=== PATIENT | male | born 1970 | race Caucasian/White ===

== ENCOUNTER 2018-09-21 14:09 | Emergency (ER) | payer SELFPAY ==
[2018-09-21 14:42] VITALS: BMI 29.8
[2018-09-21] MEDS ORDERED: NALOXONE HCL 0.4 MG/ML VIAL IVPUSH ONE (15:46)
--- NOTE | 2018-09-21 15:46 | PDOC ---
Attending Attestation - Resident Resident Name: Shanda Mcginnis - ED Attending Attestation I have performed the following: I have examined & evaluated the patient, The case was reviewed & discussed with the resident, I agree w/resident's findings & plan, Exceptions are as noted - HPI HPI: 09/21/18 17:00 48-year-old male presented [facility] due to alterations in mental status. He apparently was in route to [facility] when he was noted to be somnolent and had difficulty ambulating. [facility] with a call 911 and sent to the ER. Patient is largely unable to provide any historical data at this time as he is lethargic - Physicial Exam PE: 09/21/18 17:00 GENERAL: The patient is in no acute distress, lethargic HEAD: Normal with no signs of trauma. EYES: Pupils 2mm bilaterally, sluggishly reactive, no conjunctival injection ENT: Ears normal, nares patent, oropharynx clear without exudates. Moist mucous membranes. NECK: Normal range of motion, supple LUNGS: Breath sounds equal, clear to auscultation bilaterally. HEART:Regular rate and rhythm, normal S1 and S2 without murmur, rub or gallop. ABDOMEN: Soft, nontender EXTREMITIES:no edema, no deformities NEUROLOGICAL: somnolent, not responsive to questioning, minimally responsive to painful stimuli MUSCULOSKELETAL: no deformities SKIN: Warm, Dry, normal turgor, no rashes or lesions noted. - Medical Decision Making 09/21/18 17:03 G 48-year-old male presenting to the emergency department status post being found somnolent on his way to [facility]. Differential diagnosis includes but is not limited to: Substance overdose Unlikely meningitis or encephalitis given no fever Will do labs EKG CT head Monitor for sobriety PT given Narcan No improvement in responsiveness Doubt this presentation is due to narcotic O/D (no respiratory depression, pupils dilate in darkness and are not pinpoint) Awaiting labs Awaiting CT results (per my review, no obvious bleed) Twelve-lead EKG was performed and reviewed by me. There is normal sinus rhythm with a normal rate. The axis is normal. The intervals are normal. There are no ST or T wave abnormalities. Impression: Normal twelve-lead EKG Pt signed out to Dr Angulo pending sobriety
[2018-09-21] MEDS ORDERED: NALOXONE HCL 0.4 MG/ML VIAL ONE (15:47)
--- NOTE | 2018-09-21 15:48 | PDOC ---
History of Present Illness - General Chief Complaint: Substance Abuse Stated Complaint: ALCOHOL/DRUG ABUSE Time Seen by Provider: 09/21/18 15:27 History Source: EMS Exam Limitations: Intoxication, Unresponsive - History of Present Illness Initial Comments: Pt is a 48 yo M, with unknown PMH (pts first visit to [facility]), presenting via EMS for AMS/intoxication. Pt was seen near [facility] "stumbling" near [facility] facility, but pt did not fall. Someone nearby walked him into the [facility] facility, where they alerted EMS. EMS crew state he "mumbled something about cocaine". According to EMS note, GCS 15, no interventions given, and pt had stated "he was dropped off at [facility] after drinking too much alcohol". 09/21/18 16:53 Past History - Past Medical History Allergies/Adverse Reactions: Allergies Allergy/AdvReac Type Severity Reaction Status Date / Time No Allergy Information Allergy Verified 09/21/18 14:38 Available Home Medications: Ambulatory Orders Unobtainable 09/21/18 Other medical history: unknown - Suicide/Smoking/Psychosocial Hx Smoking History: Unknown if ever smoked Review of Systems - Review of Systems Able to Perform ROS?: Yes (pt intoxicated) Is the patient limited Yoruba proficient: Yes *Physical Exam - Vital Signs Last Vital Signs Temp Pulse Resp BP Pulse Ox 97.3 F L 84 18 106/62 84 L 09/21/18 14:10 09/21/18 14:10 09/21/18 14:10 09/21/18 14:10 09/21/18 14:10 - Physical Exam General Appearance: Yes: Nourished, Appropriately Dressed, Apparent Distress ( Pt unresponsive (groans occasionally to sternal rub), vitals stable after 2L NC O2 and repositioning.), Alcohol on Breath, Intoxicated, Obese HEENT: positive: EOMI, MAGY (pinpoint but equal and reactive), Pharynx Normal. negative: Normal ENT Inspection, Scleral Icterus (R), Scleral Icterus (L), Pharyngeal Erythema, Tonsillar Exudate, Tonsillar Erythema, TM Bulging, TM Dull , TM Erythema, Excessive drooling, Thrush, Other (no) Neck: positive: Trachea midline, Normal Thyroid, Supple. negative: Tender, Rigid, Lymphadenopathy (R), Lymphadenopathy (L), Rigidity Respiratory/Chest: positive: Lungs Clear, Normal Breath Sounds (snoring respirations, improved with repositioning, clear breath sounds). negative: Chest Tender, Respiratory Distress, Accessory Muscle Use, Rales, Wheezing Cardiovascular: positive: Regular Rhythm, Regular Rate, S1, S2. negative: Edema , JVD, Murmur, Bradycardia, Tachycardia Vascular Pulses: Carotid (R): 4+, Carotid (L): 4+ Gastrointestinal/Abdominal: positive: Normal Bowel Sounds, Soft, Protuberent. negative: Tender, Flat, Organomegaly, Pulsatile Mass, Guarding, Rebound, Tenderness Male Genitalia: positive: normal genitalia. negative: discharge Rectal Exam: positive: normal exam, normal rectal tone. negative: melena Lymphatic: negative: Adenopathy, Tenderness Musculoskeletal: positive: Normal Inspection. negative: CVA Tenderness Extremity: positive: Normal Capillary Refill, Normal Inspection, Normal Range of Motion, Pelvis Stable. negative: Tender, Cyanosis, Delayed Capillary Refill , Pedal Edema Integumentary: positive: Normal Color, Dry, Warm. 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 Banks. Pt presenting via EMS for AMS/intoxication. Pt was seen near [facility] "stumbling" near [facility], but pt did not fall. Someone nearby walked him into the [facility], where they alerted EMS. EMS crew state he "mumbled something about cocaine". According to EMS note, GCS 15, no interventions given, and pt had stated "he was dropped off at [facility] after drinking too much alcohol". PE showed unresponsive pt, will groan occasionally with movement and sternal rub. Vitals stable, pt has snoring respirations. O2 saturation improved from mid -80s% to 95% with 2L O2 nasal canula and repositioning. Pinpoint pupils. Full head-to-toe exam performed, no ecchymosis, abrasions, or step-offs noted. Pt did not groan to palpation. Clear heart and lung sounds. Pt protecting his airway and showing good cough response when moved. No facial droop or EOM palsy notable, although pt minimally responsive. Unable to perform NIHSS. Rectal exam showed good rectal tone, no bleeding. Rectal temp 95.8 (multiple blankets applied to pt and will reassess). BGM at bedside 115. Considering intoxication (alcohol vs others, possibly opiates considering pinpoint pupils), bleed/stroke, infectious. Ordered work-up including full lab work-up (CBC, CMP, Mg, Phos, coags, UA, troponin, ECG, urine drug screen, acetaminophen, salicylates), CT head non- contrast and CT spine non-contrast. Provided .4 mg IV push Narcan for improvement of AMS, to which he had no response. Pt continues to protect airway. Will continue to reassess pt and monitor for symptomatic improvement. 09/21/18 16:02 ECG showed NSR, normal intervals, no ST changes. Pt was taken for CT scan, pending results. IV was placed, nursing staff had not sent labs before CT scan. Labs sent now and pending results. 09/21/18 16:33 09/21/18 16:47 CBC: WBC 15.6 (pt afebrile, no obvious source of infection). 09/21/18 17:18 Coags WNL 09/21/18 17:[address] no acute pathology. Pt still stable, more responsive to sternal rub. Still not answering questions. 09/21/18 17:29 CMP generally WNL, Ca 8.3, Mg 2.6 Trop <.02 Alcohol 279, Acetaminophen <2, salicylates 2.3 09/21/18 18:[address] showed no fracture, although large motion artifact. Straight catheter was done for urine sample. Pt woke up during insertion of catheter and swatted nurse's hand away. Pending urine results and drug screen. Will continue to monitor for clinical sobriety. Pt vitals stable. 09/21/18 18:29 Pt also positive for cocaine. Pt signed out to next resident team. Explained presentation, ED course, any pending results, and needed interventions to resident Dr. Hernandez. 09/21/18 19:02 *DC/Admit/Observation/Transfer Diagnosis at time of Disposition: Alcohol intoxication Qualifiers: Complication of substance-induced condition: uncomplicated Qualified Code(s): F10.920 - Alcohol use, unspecified with intoxication, uncomplicated Cocaine intoxication Qualifiers: Complication of substance-induced condition: uncomplicated Qualified Code(s): F14.920 - Cocaine use, unspecified with intoxication, uncomplicated - Discharge Dispostion Condition at time of disposition: Stable - Referrals - Patient Instructions Printed Discharge Instructions: DI for Alcohol Abuse Additional Instructions: You were seen in the ER today for alcohol intoxication. Please follow-up with your primary care doctor within 1-2 days to discuss your visit and make sure your symptoms have improved. Please return to the ER if you have any worsening pain, development of fevers or chills, loss of consciousness, inability to tolerate food or fluids, or any other concerns. - Post Discharge Activity
[2018-09-21 17:02] LABS: BASO % 0.7 % (0-2.0); EOS % 0.9 % (0-4.5); HEMATOCRIT 45.8 % (35.4-49); HEMOGLOBIN 15.2 GM/dL (11.7-16.9); LYMPH % 14.7 % (8-40); MCH 28.5 pg (25.7-33.7); MCHC 33.1 g/dl (32.0-35.9); MEAN CELL VOLUME 86.1 fl (80-96); MEAN PLT VOLUME 8.6 fl (7.5-11.1); NEUT % 78.7 % (42.8-82.8); PLATELET COUNT 269 K/MM3 (134-434); RBC 5.32 M/mm3 (4.00-5.60); RDW 14.1 % (11.9-15.9); WHITE BLOOD COUNT 15.6 K/mm3 (4.0-10.0)
[2018-09-21 17:07] VITALS: TEMP 95.6
[2018-09-21 17:16] LABS: INR 0.98 (0.83-1.09); PROTHROMBIN TIME (PATIENT) 11.6 SEC (9.7-13.0)
[2018-09-21 17:19] LABS: ACTIVATED PTT 30.2 SECONDS (25.2-36.5)
[2018-09-21 17:57] LABS: ALK PHOS 83 U/L (45-117); ANION GAP 11 MMOL/L (8-16); BILIRUBIN,TOTAL 0.3 mg/dL (0.2-1); BLOOD UREA NITROGEN 13 mg/dL (7-18); CALCIUM 8.3 mg/dL (8.5-10.1); CHLORIDE 104 mmol/L (98-107); CO2 23 mmol/L (21-32); CREATININE 1.1 mg/dL (0.55-1.3); GLUCOSE,RANDOM 86 mg/dL (74-106); MAGNESIUM 2.6 mg/dL (1.8-2.4); PHOSPHOROUS 4.1 mg/dL (2.5-4.9); POTASSIUM 4.1 mmol/L (3.5-5.1); SGOT/AST 25 U/L (15-37); SGPT/ALT 21 U/L (13-61); SODIUM 139 mmol/L (136-145); TOT PROT 7.1 g/dl (6.4-8.2)
[2018-09-21 18:34] LABS: URINE APPEARANCE CLEAR; URINE BILIRUBIN NEGATIVE (<2.0 mg/dL); URINE COLOR STRAW; URINE GLUCOSE (UA) NEGATIVE (NEGATIVE); URINE KETONE NEGATIVE (NEGATIVE); URINE LEUK ESTERASE NEGATIVE (NEGATIVE); URINE NITRITE NEGATIVE (NEGATIVE); URINE PROTEIN NEGATIVE (NEGATIVE); URINE UROBILINOGEN NEGATIVE mg/dL (0.2-1.0)
[2018-09-21 18:54] LABS: METHADONE, UR NEGATIVE ng/ml (CUTOFF=300); OPIATES, URI NEGATIVE ng/ml (CUTOFF=300); PHENCYCLIDINE,URINE NEGATIVE ng/ml (CUTOFF=25); URINE AMPHETAMINES NEGATIVE ng/ml (CUTOFF=500); URINE BARBITURATES NEGATIVE ng/ml (CUTOFF=200); URINE BENZODIAZEPINES NEGATIVE ng/ml (CUTOFF=200)
[2018-09-21 18:57] LABS: COCAINE, UR POSITIVE ng/ml (CUTOFF=300)
[2018-09-21 19:11] LABS: URINE HYALINE CAST 1 /lpf; URINE MUCUS RARE
--- NOTE | 2018-09-21 19:11 | PDOC ---
*Physical Exam - Vital Signs Last Vital Signs Temp Pulse Resp BP Pulse Ox 95.6 F L 75 18 112/66 92 L 09/21/18 15:50 09/21/18 16:45 09/21/18 16:45 09/21/18 16:45 09/21/18 16:45 <Rodrigo Hernandez - Last Filed: 09/22/18 00:27> - Vital Signs Last Vital Signs Temp Pulse Resp BP Pulse Ox 95.6 F L 75 18 112/66 92 L 09/21/18 15:50 09/21/18 16:45 09/21/18 16:45 09/21/18 16:45 09/21/18 16:45 <Shayy Angulo - Last Filed: 09/22/18 00:48> ED Treatment Course - LABORATORY CBC & Chemistry Diagram: 09/21/18 16:50 09/21/18 16:50 - ADDITIONAL ORDERS Additional order review: Laboratory Results 09/21/18 09/21/18 09/21/18 17:52 17:52 16:50 PT with INR INR PTT (Actin FS) Sodium 139 Potassium 4.1 Chloride 104 Carbon Dioxide 23 Anion Gap 11 BUN 13 Creatinine 1.1 Creat Clearance w eGFR > 60 Random Glucose 86 Calcium 8.3 L Phosphorus 4.1 Magnesium 2.6 H Total Bilirubin 0.3 AST 25 ALT 21 Alkaline Phosphatase 83 Creatine Kinase 125 Troponin I < 0.02 Total Protein 7.1 Albumin 4.0 Urine Color Straw Urine Appearance Clear Urine pH 5.0 Ur Specific [place] 1.004 L Urine Protein Negative Urine Glucose (UA) Negative Urine Ketones Negative Urine Blood 1+ H Urine Nitrite Negative Urine Bilirubin Negative Urine Urobilinogen Negative Ur Leukocyte Esterase Negative Salicylates 2.3 L Opiates Screen Negative Methadone Screen Negative Acetaminophen < 2.0 L Barbiturate Screen Negative Phencyclidine Screen Negative Ur Amphetamines Screen Negative MDMA (Ecstasy) Screen Negative Benzodiazepines Screen Negative Cocaine Screen Positive A* U Marijuana (THC) Screen Negative Alcohol, Quantitative 279.5 H 09/21/18 16:50 PT with INR 11.60 INR 0.98 PTT (Actin FS) 30.2 Sodium Potassium Chloride Carbon Dioxide Anion Gap BUN Creatinine Creat Clearance w eGFR Random Glucose Calcium Phosphorus Magnesium Total Bilirubin AST ALT Alkaline Phosphatase Creatine Kinase Troponin I Total Protein Albumin Urine Color Urine Appearance Urine pH Ur Specific [place] Urine Protein Urine Glucose (UA) Urine Ketones Urine Blood Urine Nitrite Urine Bilirubin Urine Urobilinogen Ur Leukocyte Esterase Salicylates Opiates Screen Methadone Screen Acetaminophen Barbiturate Screen Phencyclidine Screen Ur Amphetamines Screen MDMA (Ecstasy) Screen Benzodiazepines Screen Cocaine Screen U Marijuana (THC) Screen Alcohol, Quantitative 09/21/18 16:50 RBC 5.32 MCV 86.1 MCHC 33.1 RDW 14.1 MPV 8.6 Neutrophils % 78.7 Lymphocytes % 14.7 Monocytes % 5.0 Eosinophils % 0.9 Basophils % 0.7 - Medications Given in the ED: ED Medications Discontinued Medications Generic Name Dose Route Start Last Admin Trade Name Angelica PRN Reason Stop Dose Admin Naloxone HCl 0.4 mg 09/21/18 15:46 09/21/18 15:50 Narcan - IVPUSH 09/21/18 15:47 0.4 mg ONCE ONE Administration <Rodrigo Hernandez - Last Filed: 09/22/18 00:27> - LABORATORY CBC & Chemistry Diagram: 09/21/18 16:50 09/21/18 16:50 - ADDITIONAL ORDERS Additional order review: Laboratory Results 09/21/18 09/21/18 09/21/18 17:52 17:52 16:50 PT with INR INR PTT (Actin FS) Sodium 139 Potassium 4.1 Chloride 104 Carbon Dioxide 23 Anion Gap 11 BUN 13 Creatinine 1.1 Creat Clearance w eGFR > 60 Random Glucose 86 Calcium 8.3 L Phosphorus 4.1 Magnesium 2.6 H Total Bilirubin 0.3 AST 25 ALT 21 Alkaline Phosphatase 83 Creatine Kinase 125 Troponin I < 0.02 Total Protein 7.1 Albumin 4.0 Urine Color Straw Urine Appearance Clear Urine pH 5.0 Ur Specific [place] 1.004 L Urine Protein Negative Urine Glucose (UA) Negative Urine Ketones Negative Urine Blood 1+ H Urine Nitrite Negative Urine Bilirubin Negative Urine Urobilinogen Negative Ur Leukocyte Esterase Negative Urine WBC (Auto) 1 Urine RBC (Auto) <1 Urine Bacteria Rare Hyaline Casts 1 Urine Mucus Rare Salicylates 2.3 L Opiates Screen Negative Methadone Screen Negative Acetaminophen < 2.0 L Barbiturate Screen Negative Phencyclidine Screen Negative Ur Amphetamines Screen Negative MDMA (Ecstasy) Screen Negative Benzodiazepines Screen Negative Cocaine Screen Positive A* U Marijuana (THC) Screen Negative Alcohol, Quantitative 279.5 H 09/21/18 16:50 PT with INR 11.60 INR 0.98 PTT (Actin FS) 30.2 Sodium Potassium Chloride Carbon Dioxide Anion Gap BUN Creatinine Creat Clearance w eGFR Random Glucose Calcium Phosphorus Magnesium Total Bilirubin AST ALT Alkaline Phosphatase Creatine Kinase Troponin I Total Protein Albumin Urine Color Urine Appearance Urine pH Ur Specific [place] Urine Protein Urine Glucose (UA) Urine Ketones Urine Blood Urine Nitrite Urine Bilirubin Urine Urobilinogen Ur Leukocyte Esterase Urine WBC (Auto) Urine RBC (Auto) Urine Bacteria Hyaline Casts Urine Mucus Salicylates Opiates Screen Methadone Screen Acetaminophen Barbiturate Screen Phencyclidine Screen Ur Amphetamines Screen MDMA (Ecstasy) Screen Benzodiazepines Screen Cocaine Screen U Marijuana (THC) Screen Alcohol, Quantitative 09/21/18 16:50 RBC 5.32 MCV 86.1 MCHC 33.1 RDW 14.1 MPV 8.6 Neutrophils % 78.7 Lymphocytes % 14.7 Monocytes % 5.0 Eosinophils % 0.9 Basophils % 0.7 - Medications Given in the ED: ED Medications Discontinued Medications Generic Name Dose Route Start Last Admin Trade Name Angelica PRN Reason Stop Dose Admin Naloxone HCl 0.4 mg 09/21/18 15:46 09/21/18 15:50 Narcan - IVPUSH 09/21/18 15:47 0.4 mg ONCE ONE Administration <Shayy Angulo - Last Filed: 09/22/18 00:48> Medical Decision Making - Medical Decision Making 09/21/18 19:[address] Mcginnis. Patient is a 48 yo male w/ unknown pmh BIBA for AMS/intoxication. Patient currently pending labs / clinical sobriety / return to [facility]. 09/22/18 00:20 Patient receiving frequent checks. Has been sleeping soundly for several hours. Arousable. 09/22/18 00:26 Patient ambulating without difficulty. Speech clear. Head / C-spine CT negative. CXR negative. No concern for acute process at this time. Discharging to home. <Rodrigo Hernandez - Last Filed: 09/22/18 00:27> - Medical Decision Making Alcohol intoxication DDx. alcohol intoxication, alcohol withdrawal. drug intoxication labs and lytes with nonspecific leukocytosis, but is intoxicated. etoh level 280 , c/w clinical picture. CT head and C spine neg for bleed or fx/injuries. had received narcan, with min improvement, spo2 improving on supp O2, will wean off. CXR_rotated, limited but otherwise clear. vital signs remain stable, normal sats and RR. snoring comfortably, NAD> sober at 1245am, gait stable. pt monitored closely in the ED, sobriety hold. remained comfortable, no acute events, VS remain stable. at time of discharge, clinically improved, sober, speech clear, gait stable. no acute neuro changes, normal mental status. no evidence of SI or HI or psychosis. discharge in stable condition. offered detox and resources for ETOH abuse. prompt follow up encouraged to [facility], as he was not inpatient 09/21/18 20:12 09/22/18 00:48 <Shayy Angulo - Last Filed: 09/22/18 00:48> *DC/Admit/Observation/Transfer <ShadRodrigo gr - Last Filed: 09/22/18 00:27> <Shayy Angulo - Last Filed: 09/22/18 00:48> Diagnosis at time of Disposition: Alcohol intoxication Qualifiers: Complication of substance-induced condition: uncomplicated Qualified Code(s): F10.920 - Alcohol use, unspecified with intoxication, uncomplicated Cocaine intoxication Qualifiers: Complication of substance-induced condition: uncomplicated Qualified Code(s): F14.920 - Cocaine use, unspecified with intoxication, uncomplicated - Discharge Dispostion Disposition: HOME Condition at time of disposition: Stable - Referrals - Patient Instructions Printed Discharge Instructions: DI for Alcohol Abuse Additional Instructions: You were seen in the ER today for alcohol intoxication. Please follow-up with your primary care doctor within 1-2 days to discuss your visit and make sure your symptoms have improved. Please return to the ER if you have any worsening pain, development of fevers or chills, loss of consciousness, inability to tolerate food or fluids, or any other concerns. - Post Discharge Activity
[2018-09-21 19:21] LABS: URINE BACTERIA RARE /hpf (NONE SEEN)
[2018-09-21 20:39] VITALS: BP 124/70; PULSE 82
--- NOTE | 2018-09-22 15:08 | EKG ---
Test Reason : Blood Pressure : / mmHG Vent. Rate : 075 BPM Atrial Rate : 075 BPM P-R Int : 190 ms QRS Dur : 094 ms QT Int : 422 ms P-R-T Axes : 043 006 -07 degrees QTc Int : 471 ms NORMAL SINUS RHYTHM NORMAL ECG NO PREVIOUS ECGS AVAILABLE Confirmed by MARY GRACE JACOB MD ([id number]) on 09/22/2018 3:08:26 PM Referred By: Confirmed By:MARY GRACE JACOB MD
== END 2018-09-22 02:10 | disposition home or self-care (01) ==
LOC: JER 14:09
PROC: 3E033NZ Introduction of Analgesics, Hypnotics, Sedatives into Peripheral Vein, Percutaneous Approach (ICD-10-PCS; principal; 2018-09-21)
DX: F10.920 Alcohol use, unspecified with intoxication, uncomplicated (principal); F14.920 Cocaine use, unspecified with intoxication, uncomplicated
CPT/HCPCS: 36415; 70450-TC; 71045-TC-FY; 72125-TC; 80053; 80307; 81003; 81015; 82550; 82962; 83735; 84100; 84484; 85025; 85610; 85730; 87086; 93005; 93010; 99284-25